=== PATIENT | male | born 1965 | race Two or more races ===

== ENCOUNTER 2023-08-26 17:18 | Emergency (ER) | payer MEDICAID ==
[~2023-08-26] VITALS: Ht 167.6 cm; Wt 78.5 kg
[2023-08-26 18:45] LABS: BILIRUBIN,URINE SMALL (Neg); CLARITY,URINE CLEAR (Clear); GLUCOSE, URINE NEGATIVE (Neg); KETONES,URINE NEGATIVE (Neg); LEUKOCYTE ESTERASE ,URINE NEGATIVE (Neg); NITRITES, URINE NEGATIVE (Neg); OCCULT BLOOD,URINE NEGATIVE (Neg); PROTEIN,URINE NEGATIVE (Neg)
[2023-08-26 18:46] LABS: COLOR,URINE DARK YELLOW (Yellow); UA COLLECTION TYPE NON-SPECIFIED
[2023-08-26 19:02] LABS: URINE AMPHETAMINE SCREEN POSITIVE (Neg); URINE BARBITUATE SCREEN NEGATIVE (Neg); URINE BENZODIAZEPINES SCREEN NEGATIVE (Neg); URINE CANNABINOID SCREEN NEGATIVE (Neg); URINE COCAINE SCREEN NEGATIVE (Neg); URINE METHADONE SCREEN NEGATIVE (Neg); URINE OPIATE SCREEN NEGATIVE (Neg); URINE PHENCYCLIDINE SCREEN NEGATIVE (Neg)
[2023-08-26 19:36] LABS: BASOPHILS # (AUTO) 0.1 X10'3 (0-0.2); BASOPHILS % (AUTO) 0.5 % (0-1); EOSINOPHILS # (AUTO) 0.2 X10'3 (0-0.9); EOSINOPHILS % (AUTO) 1.8 % (0-6); HEMOGLOBIN 15.5 g/dl (14.0-17.9); LYMPHOCYTES # (AUTO) 2.6 X10'3 (1.1-4.8); LYMPHOCYTES % (AUTO) 26.7 % (21-51); MEAN CORPUSCULAR HEMOGLOBIN 33.2 PG (27.0-31.0); MEAN CORPUSCULAR HGB CONC 35.3 g/dL (33.0-36.5); MEAN CORPUSCULAR VOLUME 94.1 FL (78-98); MEAN PLATELET VOLUME 8.9 FL (7.4-10.4); MONOCYTES # (AUTO) 0.9 X10'3 (0-0.9); MONOCYTES % (AUTO) 9.6 % (2-12); NEUTROPHILS # (AUTO) 5.9 X10'3 (1.8-7.7); NEUTROPHILS % (AUTO) 61.4 % (42-75); PLATELET COUNT 322 X10'3 (140-440); RED BLOOD COUNT 4.68 X10'6 (4.70-6.10); RED CELL DISTRIBUTION WIDTH 12.7 % (11.5-14.5); WHITE BLOOD COUNT 9.6 X10'3 (4.5-11.0)
[2023-08-26 19:53] LABS: ALBUMIN 3.4 G/DL (3.4-5.0); ANION GAP 9 (8-16); BLOOD UREA NITROGEN 15 MG/DL (7-18); BUN/CREATININE RATIO 15.3 (10.0-20.0); CHLORIDE 103 MMOL/L (99-107); CREATININE 0.98 MG/DL (0.60-1.10); ETHANOL < 10 MG/DL (<10); GLUCOSE 98 MG/DL (70-104); POTASSIUM 3.3 MMOL/L (3.5-5.1); SODIUM 141 MMOL/L (135-145); THYROID STIMULATING HORMONE 1.85 ulU/ml (0.34-4.50); TOTAL CARBON DIOXIDE 29.5 MMOL/L (24-32); eCRCL 75 ML/MIN; eGFR 79 ML/MIN
[2023-08-27 06:08] VITALS: BP 123/81; PULSE 68; TEMP 97.5; O2SAT 98
[2023-08-27 08:30] VITALS: RESP 16
== END 2023-08-27 13:29 | disposition home or self-care (01) ==
LOC: ER 17:19
DX: R45.851 Suicidal ideations (principal); Z20.822 Contact with and (suspected) exposure to COVID-19; F19.10 Other psychoactive substance abuse, uncomplicated; F15.90 Other stimulant use, unspecified, uncomplicated
CPT/HCPCS: 36415; 80048; 80305; 80320; 81003; 84443; 85025; 87811; 99285

== ENCOUNTER 2023-09-20 08:15 | Emergency (ER) | payer MEDICAID ==
[~2023-09-20] VITALS: Ht 167.6 cm; Wt 82.7 kg
[2023-09-20 08:36] VITALS: BP 141/82; PULSE 74; O2SAT 95
[2023-09-20] MEDS ORDERED: DICY20TA17 PO (13:45)
[2023-09-20] MEDS ORDERED: OMEP40CA21 PO (13:45)
[2023-09-20] MEDS: mag hydrox/Alum hydrox/simeth 30ml oral suspension PO ONE (13:48)
[2023-09-20] MEDS: LIDOcaine 2% Viscous 15ml cup MM PRN (13:48)
[2023-09-20 13:55] VITALS: RESP 18; TEMP 97.8
== END 2023-09-20 13:56 | disposition home or self-care (01) ==
LOC: ER 08:15
DX: R10.13 Epigastric pain (principal); F15.90 Other stimulant use, unspecified, uncomplicated
CPT/HCPCS: 99283